=== PATIENT | male | born 1990 | race Caucasian/White ===

== ENCOUNTER 2017-08-11 02:13 | Emergency (ER) | payer BC, MEDICAID ==
--- NOTE | 2017-08-11 02:34 | Emergency Department Record ---
History of Present Illness - General Chief complaint: Flu Like Symptoms Stated complaint: FLU LIKE SYMPTOMS Time Seen by Provider: 08/11/17 02:15 Source: Patient Mode of Arrival: Ambulatory Limitations: No limitations - History of Present Illness Initial comments: 27 yo male presents to ED for evaluation of non-productive cough symptoms, nausea, vomiting, and body aches for the past 2 days. Patient reports that "I think I have the flu, everybody I'm around has the flu". Patient reports subjective fever and chills as well. Patient denies health problems at his baseline. MD Complaint: Generalized weakness Onset/Timin -: Days(s) Location: Generalized Severity: Mild Improves with: None Worsens with: None Associated Symptoms: Fever/chills, Nausea/vomiting - Neil Coma Scale Eye Response: (4) Open spontaneously Motor Response: (6) Obeys commands Verbal Response: (5) Oriented [place] Total: 15 - Related Data Previous Rx's Medication Instructions Recorded Ondansetron [Zofran Odt] 4 mg PO Q8H PRN #15 tab.rapdis 08/11/17 Allergies Allergy/AdvReac Type Severity Reaction Status Date / Time Sulfa (Sulfonamide Allergy RASH Verified 05/02/15 15:04 Antibiotics) hydrocodone bitartrate AdvReac NAUSEA AND Verified 05/02/15 15:04 [From Vicodin] VOMITING Travel Screening - Travel/Exposure Within Last 30 Days Have you traveled within the last 30 days?: No - Travel/Exposure Within Last Year Have you traveled outside the [place] in the last year?: No - Additonal Travel Details Have you been exposed to anyone with a communicable illness?: No - Travel Symptoms Symptom Screening: None Review of Systems Constitutional: Reports: Chills, Fever, Malaise, Weakness. Denies: Night sweats Eyes: Denies: Eye discharge, Eye pain ENT: Denies: Congestion, Ear pain, Epistaxis Respiratory: Reports: Cough. Denies: Dyspnea Cardiovascular: Denies: Chest pain, Dyspnea on exertion Endocrine: Reports: Fatigue Gastrointestinal: Reports: Nausea, Vomiting. Denies: Abdominal pain Genitourinary: Denies: Incontinence, Retention Musculoskeletal: Denies: Arthralgia, Back pain, Gout, Joint swelling Skin: Denies: Bruising, Change in color Neurological: Reports: Headache. Denies: Abnormal gait, Confusion, Seizure Psychiatric: Denies: Anxiety Hematological/Lymphatic: Denies: Anemia, Blood Clots Past Medical History - SOCIAL HISTORY Smoking Status: Never smoker Alcohol Use: None Drug Use: None - RESPIRATORY Hx Respiratory Disorders: No - CARDIOVASCULAR Hx Cardio Disorders: No - NEURO Hx Neuro Disorders: No - GI Hx GI Disorders: No - Hx Genitourinary Disorders: No - ENDOCRINE Hx Endocrine Disorders: No - MUSCULOSKELETAL Hx Musculoskeletal Disorders: No - PSYCH Hx Psych Problems: No - HEMATOLOGY/ONCOLOGY Hx Hematology/Oncology Disorders: No Family Medical History Any Significant Family History?: Yes Hx Cancer: Mother Hx Heart Disease: Grandparents Physical Exam - General General Appearance: Alert, Oriented x3, Cooperative, Moderate distress Limitations: No limitations - Head Head exam: Atraumatic, Normocephalic, Normal inspection Head exam detail: negative: Abrasion, Contusion, Rose's sign, General tenderness, Hematoma, Laceration - Eye Eye exam: Normal appearance. negative: Conjunctival injection, Periorbital swelling, Periorbital tenderness, Scleral icterus - ENT Ear exam: negative: Auricular hematoma, Auricular trauma Nasal Exam: negative: Active bleeding, Discharge, Dried blood, Foreign body Mouth exam: negative: Drooling, Laceration, Muffled voice, Tongue elevation - Neck Neck exam: Normal inspection. negative: Meningismus, Tenderness - Respiratory Respiratory exam: Normal lung sounds bilaterally. negative: Rales, Respiratory distress, Rhonchi, Stridor - Cardiovascular Cardiovascular Exam: Regular rate, Normal rhythm, Normal heart sounds - GI/Abdominal GI/Abdominal exam: Soft. negative: Rebound, Rigid, Tenderness - Rectal Rectal exam: Deferred - exam: Deferred - Extremities Extremities exam: Normal inspection. negative: Calf tenderness, Pedal edema, Tenderness - Back Back exam: Denies: CVA tenderness (R), CVA tenderness (L) - Neurological Neurological exam: Alert, Normal gait, Oriented X3 - Psychiatric Psychiatric exam: Normal affect, Normal mood - Skin Skin exam: Normal color. negative: Abrasion Type of lesion: negative: abrasion Course Vital Signs 08/11/17 08/11/17 02:18 02:20 Temperature 97.8 F 99.1 F Pulse Rate [ 103 H Pulse Ox Probe] Respiratory 18 Rate Blood Pressure 129/79 [Left Arm] Pulse Ox 98 - Reevaluation(s) Reevaluation #1: 08/11/17 02:43 Influenza: Negative Patient was updated on all results, patient appears stable for discharge with Zofran as needed for nausea/vomiting symptoms. Patient agrees with the plan of care as discussed. Disposition Disposition: Discharge Clinical Impression: Nausea & vomiting Qualifiers: Vomiting type: unspecified Vomiting Intractability: unspecified Qualified Code( s): R11.2 - Nausea with vomiting, unspecified Disposition: Home, Self-Care Condition: (2) Stable Instructions: Acute Nausea and Vomiting (ED) Additional Instructions: Return to ED if your symptoms worsen or if you have any concerns. Zofran as directed. Follow-up with your family doctor in 3-5 days as directed. Prescriptions: Ondansetron [Zofran Odt] 4 mg PO Q8H PRN #15 tab.rapdis PRN Reason: Nausea/Vomiting Forms: Patient Portal Access Time of Disposition: 02:45 Quality - Quality Measures Quality Measures: N/A - Blood Pressure Screening Does Patient Have Any of the Following: No Blood Pressure Classification: Pre-Hypertensive BP Reading Systolic Measurement: 129 Diastolic Measurement: 79 Screening for High Blood Pressure: < Pre-Hypertensive BP, F/U Documented > [ G8950] Pre-Hypertensive Follow-up Interventions: Referral to alternative/primary care provider.
[2017-08-11 02:35] LABS: INFLUENZA A NEGATIVE (NEGATIVE); INFLUENZA B NEGATIVE (NEGATIVE)
== END 2017-08-11 02:56 | disposition home or self-care (01) ==
LOC: ER 02:13
DX: R11.2 Nausea with vomiting, unspecified (principal); R05 Cough; R53.1 Weakness
CPT/HCPCS: 87400; 99282

== ENCOUNTER 2017-08-12 08:49 | Emergency (ER) | payer BC ==
[2017-08-12] MEDS ORDERED: ONDANSETRON HCL IV 4 MG/2 ML VIAL IVP ONE (08:59)
[2017-08-12] MEDS ORDERED: 0.9 % SODIUM CHLORIDE 1,000 ML BAG IV ONE (08:59)
--- NOTE | 2017-08-12 09:03 | Emergency Department Record ---
History of Present Illness - General Stated Complaint: CAN'T KEEP ANYTHING DOWN Time Seen by Provider: 08/12/17 08:51 Source: Patient Mode of Arrival: Ambulatory Limitations: No limitations - History of Present Illness Initial Comments: 27 yo male presents with 2-3 days of cough, congestion, sore throat, headaches, chills, aches. His daughter is Influenza Positive. He was seen in the ED yesterday and tested negative. His is having some nausea and vomiting as well. No diarrhea. No syncope. No chest pain or shortness of breath. MD Complaint: Cough, Fever, Nasal congestion, Other (Vomiting) -: Days(s) (3) Severity: Moderate Quality: Aching Consistency: Constant Improves With: Nothing Worsens With: Other (Coughing) Context: Sick contacts Associated Symptoms: Chills, Cough, Fever, Headache, Nasal congestion, Nausea, Rhinorrhea, Sore throat, Vomiting Treatments Prior to Arrival: None - Related Data Previous Rx's Medication Instructions Recorded Ondansetron [Zofran Odt] 4 mg PO Q8H PRN #15 tab.rapdis 08/11/17 Benzonatate [Tessalon] 1 cap PO Q8H PRN #20 cap 08/12/17 Ondansetron [Zofran Odt] 4 mg PO Q8H #15 tab.rapdis 08/12/17 Oseltamivir Phosphate [Tamiflu] 75 mg PO BID #10 capsule 08/12/17 Allergies Allergy/AdvReac Type Severity Reaction Status Date / Time Sulfa (Sulfonamide Allergy RASH Verified 08/12/17 09:09 Antibiotics) hydrocodone bitartrate AdvReac NAUSEA AND Verified 08/12/17 09:09 [From Vicodin] VOMITING Review of Systems Constitutional: Reports: Chills, Fever, Malaise Eyes: Denies: Eye discharge, Eye pain, Photophobia, Vision change ENT: Reports: Congestion, Throat pain Respiratory: Reports: Cough Cardiovascular: Denies: Chest pain, Syncope Endocrine: Denies: Fatigue Gastrointestinal: Reports: Nausea, Vomiting. Denies: Abdominal pain, Constipation, Diarrhea, Hematemesis, Hematochezia Genitourinary: Denies: Dysuria, Frequency Musculoskeletal: Denies: Arthralgia, Back pain Skin: Denies: Bruising, Change in color, Rash Neurological: Reports: Headache. Denies: Numbness, Weakness Psychiatric: Denies: Anxiety Hematological/Lymphatic: Denies: Blood Clots, Easy bleeding, Easy bruising, Swollen glands Past Medical History - SOCIAL HISTORY Smoking Status: Never smoker Drug Use: None - RESPIRATORY Hx Respiratory Disorders: No - CARDIOVASCULAR Hx Cardio Disorders: No - NEURO Hx Neuro Disorders: No - GI Hx GI Disorders: No - Hx Genitourinary Disorders: No - ENDOCRINE Hx Endocrine Disorders: No - MUSCULOSKELETAL Hx Musculoskeletal Disorders: No - PSYCH Hx Psych Problems: No - HEMATOLOGY/ONCOLOGY Hx Hematology/Oncology Disorders: No Family Medical History Hx Cancer: Mother Hx Heart Disease: Grandparents Physical Exam - General General Appearance: Alert, Oriented x3, Cooperative, No acute distress Limitations: No limitations - Head Head exam: Atraumatic, Normal inspection - Eye Eye exam: Normal appearance. negative: Conjunctival injection, Scleral icterus - ENT ENT exam: Normal exam, Mucous membranes moist Ear exam: Normal external inspection Nasal Exam: Normal inspection Mouth exam: Normal external inspection Teeth exam: Normal inspection Throat exam: Normal inspection - Neck Neck exam: Normal inspection, Full ROM. negative: Tenderness - Respiratory Respiratory exam: Decreased breath sounds, Rhonchi (left greater than right). negative: Normal lung sounds bilaterally, Respiratory distress - Cardiovascular Cardiovascular Exam: Regular rate, Normal rhythm, Normal heart sounds - GI/Abdominal GI/Abdominal exam: Soft, Normal bowel sounds. negative: Tenderness - Rectal Rectal exam: Deferred - exam: Deferred - Extremities Extremities exam: Normal inspection, Full ROM, Normal capillary refill. negative: Tenderness - Back Back exam: Reports: Normal inspection, Full ROM. Denies: Muscle spasm, Rash noted, Tenderness - Neurological Neurological exam: Alert, Normal gait, Oriented X3 - Psychiatric Psychiatric exam: Normal affect, Normal mood. negative: Agitated, Anxious - Skin Skin exam: Dry, Intact, Normal color, Warm Course - Reevaluation(s) Reevaluation #1: 08/12/17 09:02 EMR reviewed from prior visit 08/12/17 09:34 No acute changes on the CBC The prelim XR was reviewed. No acute changes Given his daughter was positive for influenza she will be treated as well. 08/12/17 09:54 No acute changes in the labs 08/12/17 10:11 Final labs and chest XR were negative for acute changes Medical Decision Making - Lab Data Result diagrams: 08/12/17 09:20 08/12/17 09:20 Disposition Disposition: Discharge Clinical Impression: Influenza Nausea & vomiting Qualifiers: Vomiting type: unspecified Vomiting Intractability: unspecified Qualified Code( s): R11.2 - Nausea with vomiting, unspecified Disposition: Home, Self-Care Condition: (1) Good Instructions: Influenza (ED), Acute Nausea and Vomiting (ED) Additional Instructions: Rest and stay well hydrated Return if vomiting, worse, short of breath or any new concerns Prescriptions: Benzonatate [Tessalon] 1 cap PO Q8H PRN #20 cap PRN Reason: Cough Ondansetron [Zofran Odt] 4 mg PO Q8H #15 tab.rapdis Oseltamivir Phosphate [Tamiflu] 75 mg PO BID #10 capsule Time of Disposition: 09:59 Quality - Quality Measures Quality Measures: N/A - Blood Pressure Screening Does Patient Have Any of the Following: No Blood Pressure Classification: Pre-Hypertensive BP Reading Systolic Measurement: 146 Diastolic Measurement: 83 Screening for High Blood Pressure: < Pre-Hypertensive BP, F/U Documented > [ G8950] Pre-Hypertensive Follow-up Interventions: Referral to alternative/primary care provider.
[2017-08-12 09:28] LABS: HEMATOCRIT 47.6 % (42.0-52.0); HEMOGLOBIN 16.6 gm/dl (14.0-18.0); MEAN CELL VOLUME 82.2 fl (81-97); MEAN CORPUSCULAR HGB CONC 34.9 g/dl (32-36); MEAN PLATELET VOLUME 10.5 fl (7.4-10.4); PLATELET COUNT 186 K/uL (130-400); RED BLOOD COUNT 5.79 M/uL (4.40-5.70); RED CELL DISTRIBUTION WIDTH 13.3 % (11.5-14.5); WHITE BLOOD COUNT W/O DIFF 4.4 K/uL (4.2-12.2)
[2017-08-12] MEDS ORDERED: OSTELTAMIVIR 75 MG CAP PO ONE (09:28)
[2017-08-12 09:29] LABS: MEAN CORPUSCULAR HEMOGLOBIN 28.6 pg (27-33)
[2017-08-12 09:42] LABS: BLOOD UREA NITROGEN 10 mg/dL (6-20); EST GLOMERULAR FILTRATION RATE > 60 mL/min
[2017-08-12 09:43] LABS: PLATELET ESTIMATE NORMAL (NORMAL)
[2017-08-12 09:45] LABS: GLUCOSE,RANDOM 104 mg/dL (74-109)
[2017-08-12] MEDS ORDERED: ACETAMINOPHEN 500 MG TABLET PO ONE (10:27)
--- NOTE | 2017-08-13 07:51 | RADIOLOGY REPORT ---
EXAM: CHEST, TWO VIEWS HISTORY: COUGH FOR TWO DAYS, FEVER, BODY ACHES, CHILLS. TECHNIQUE: PA and lateral views of the chest were obtained. Comparison: No prior chest x-ray. FINDINGS: The heart size is normal. No definite acute infiltrate seen. No pleural effusion or pneumothorax evident. IMPRESSION: THE CHEST APPEARS NEGATIVE. JOB NUMBER: [id number] MTDD
== END 2017-08-12 10:48 | disposition home or self-care (01) ==
LOC: ER 08:49
DX: J10.1 Influenza due to other identified influenza virus with other respiratory manifestations (principal); R11.2 Nausea with vomiting, unspecified; R05 Cough
CPT/HCPCS: 99284 ×2; 96374; 96361; 80048; 85027; 71046; J2405; J7030